=== PATIENT | male | born 1935 | race Two or more races ===

== ENCOUNTER 2020-07-09 18:01 | Emergency (ER) | payer MEDICARE, MEDICAID ==
[~2020-07-09] VITALS: Ht 175.3 cm; Wt 85.0 kg
[2020-07-09 18:45] LABS: BASOPHILS % (AUTO) 0.5 % (0-1); EOSINOPHILS % (AUTO) 0.3 % (0-6); HEMATOCRIT 36.6 % (42.0-52.0); HEMOGLOBIN 12.5 g/dl (14.0-17.9); LYMPHOCYTES # (AUTO) 1.1 X10'3 (1.1-4.8); LYMPHOCYTES % (AUTO) 14.5 % (21-51); MEAN CORPUSCULAR HEMOGLOBIN 28.3 PG (27.0-31.0); MEAN CORPUSCULAR VOLUME 83.2 FL (78-98); MEAN PLATELET VOLUME 7.2 FL (7.4-10.4); MONOCYTES # (AUTO) 0.6 X10'3 (0-0.9); MONOCYTES % (AUTO) 7.8 % (2-12); NEUTROPHILS # (AUTO) 5.7 X10'3 (1.8-7.7); NEUTROPHILS % (AUTO) 76.9 % (42-75); PLATELET COUNT 210 X10'3 (140-440); RED BLOOD COUNT 4.41 X10'6 (4.70-6.10); RED CELL DISTRIBUTION WIDTH 14.6 % (11.5-14.5); WHITE BLOOD COUNT 7.4 X10'3 (4.5-11.0)
[2020-07-09 18:56] LABS: ALANINE AMINOTRANSFERASE 40 U/L (12-78); ALBUMIN/GLOBULIN RATIO 0.6 (1.1-1.5); ALKALINE PHOSPHATASE 73 IU/L (46-116); ANION GAP 8 (8-16); ASPARTATE AMINO TRANSFERASE 45 U/L (10-37); BILIRUBIN,TOTAL 0.7 MG/DL (0.1-1.0); BLOOD UREA NITROGEN 16 MG/DL (7-18); BUN/CREATININE RATIO 16.7 (5.4-32.0); CALCIUM 8.6 MG/DL (8.5-10.1); CHLORIDE 98 MMOL/L (99-107); CREATININE 0.96 MG/DL (0.60-1.10); GLUCOSE 201 MG/DL (70-104); POTASSIUM 4.1 MMOL/L (3.5-5.1); SODIUM 131 MMOL/L (135-145); TOTAL CARBON DIOXIDE 25.5 MMOL/L (24-32); eGFR 74 ML/MIN
[2020-07-09 19:08] LABS: TROPONIN I 0.04 NG/ML (0.0-0.05)
[2020-07-09] MEDS ORDERED: acetaminophen 325mg tablet PO ONE (19:10)
--- NOTE | 2020-07-09 19:20 | NUR ---
PT TOOK TYLENOL 500 MG AT 1830
[2020-07-09] MEDS ORDERED: hydrocortisone sod succ/PF 100mg/2ml inj. IV PRN (21:00)
[2020-07-09] MEDS ORDERED: BAMLANIVIMAB INJECTION 700 MG in normal saline 250ml IV soln 180 ML IV ONE (21:00)
[2020-07-09] MEDS ORDERED: epiNEPHrine 1 mg/ml inj IM PRN (21:00)
[2020-07-09] MEDS ORDERED: albuterol 2.5 MG/3 ML nebule NEB PRN (21:00)
[2020-07-09] MEDS ORDERED: famotidine/PF 10 mg/ml inj IV PRN (21:00)
[2020-07-09] MEDS ORDERED: diphenhydrAMINE 50 mg/ml inj IV PRN (21:00)
[2020-07-09] MEDS ORDERED: acetaminophen 325mg tablet PO PRN (21:00)
[2020-07-09] MEDS ORDERED: AZIT-63 PO (21:35)
--- NOTE | 2020-07-09 23:27 | NUR ---
ASSISTED PT WITH URINAL. PT POSITIONED TO COMFORT WITH PILLOWS ON LEFT SIDE. CALL [facility] WITHIN REACH
--- NOTE | 2020-07-10 00:35 | NUR ---
INCONTINENT X 1 BM, SOFT BROWN/YELLOW. CLEANED PT AND CHANGED LINENS. PT SHIVERING AND COMPLAINING OF BEING COLD. TEMP 100.1. AYANA MONZON VERBAL ORDER FOR 650 MG TYLENOL.
[2020-07-10] MEDS ORDERED: acetaminophen 325mg tablet PO ONE (00:45)
--- NOTE | 2020-07-10 03:47 | NUR ---
PT RESTING COMFORTABLY ON RIGHT SIDE. NO NEEDS AT THIS TIME. VS WNL. WILL CONTINUE TO MONITOR
--- NOTE | 2020-07-10 06:32 | NUR ---
Family called, report that they will crab picker pt [phone]
[2020-07-10 08:37] VITALS: BP 167/76
== END 2020-07-10 09:10 | disposition home or self-care (01) ==
LOC: ER 18:02
DX: U07.1 COVID-19 (principal); R50.9 Fever, unspecified; E11.9 Type 2 diabetes mellitus without complications; Z88.0 Allergy status to penicillin; Z79.2 Long term (current) use of antibiotics; Z89.511 Acquired absence of right leg below knee
CPT/HCPCS: 36415; 71045; 80053; 83880; 84484; 85025; 96365; 99285; J7050; 93005

== ENCOUNTER 2022-02-02 08:46 | Emergency (ER) | payer MEDICARE, MEDICAID ==
[~2022-02-02] VITALS: Ht 152.4 cm; Wt 81.0 kg
[2022-02-02 16:22] VITALS: BP 152/73
[2022-02-02 16:50] LABS: BASOPHILS # (AUTO) 0.1 X10'3 (0-0.2); BASOPHILS % (AUTO) 0.8 % (0-1); EOSINOPHILS # (AUTO) 0.5 X10'3 (0-0.9); EOSINOPHILS % (AUTO) 5.9 % (0-6); HEMATOCRIT 43.1 % (42.0-52.0); HEMOGLOBIN 14.5 g/dl (14.0-17.9); LYMPHOCYTES # (AUTO) 2.3 X10'3 (1.1-4.8); MEAN CORPUSCULAR HEMOGLOBIN 29.8 PG (27.0-31.0); MEAN CORPUSCULAR HGB CONC 33.7 g/dL (33.0-36.5); MEAN CORPUSCULAR VOLUME 88.6 FL (78-98); MEAN PLATELET VOLUME 7.1 FL (7.4-10.4); MONOCYTES # (AUTO) 0.8 X10'3 (0-0.9); MONOCYTES % (AUTO) 10.3 % (2-12); NEUTROPHILS # (AUTO) 4.1 X10'3 (1.8-7.7); PLATELET COUNT 256 X10'3 (140-440); RED BLOOD COUNT 4.87 X10'6 (4.70-6.10); RED CELL DISTRIBUTION WIDTH 12.9 % (11.5-14.5); WHITE BLOOD COUNT 7.8 X10'3 (4.5-11.0)
[2022-02-02 17:02] LABS: ALANINE AMINOTRANSFERASE 31 U/L (12-78); ALBUMIN 3.6 G/DL (3.4-5.0); ALBUMIN/GLOBULIN RATIO 0.8 (1.1-1.5); ALKALINE PHOSPHATASE 63 IU/L (46-116); ANION GAP 9 (8-16); ASPARTATE AMINO TRANSFERASE 21 U/L (10-37); BILIRUBIN,TOTAL 0.4 MG/DL (0.1-1.0); BLOOD UREA NITROGEN 20 MG/DL (7-18); BUN/CREATININE RATIO 24.4 (5.4-32.0); CHLORIDE 102 MMOL/L (99-107); CREATININE 0.82 MG/DL (0.60-1.10); GLUCOSE 99 MG/DL (70-104); POTASSIUM 4.1 MMOL/L (3.5-5.1); SODIUM 137 MMOL/L (135-145); TOTAL CARBON DIOXIDE 26.1 MMOL/L (24-32); eGFR 89 ML/MIN
== END 2022-02-02 18:06 | disposition home or self-care (01) ==
LOC: ER 08:47
DX: R60.0 Localized edema (principal); E78.00 Pure hypercholesterolemia, unspecified; E11.9 Type 2 diabetes mellitus without complications; Z98.890 Other specified postprocedural states; Z88.0 Allergy status to penicillin
CPT/HCPCS: 36415; 80053; 85025; 85610; 93926; 93971; 99284